=== PATIENT | male | born 1980 | race Caucasian/White ===

== ENCOUNTER 2021-12-21 12:32 | Inpatient (IN) ==
[2021-12-21 13:09] LABS: Basophils # (auto) 0.03 K/uL (0-0.2); Basophils % (auto) 0.2 %; Eosinophils # (auto) 0.09 K/uL (0-0.5); Eosinophils % (auto) 0.7 %; Hematocrit (blood only) 47.3 % (42-52); Hemoglobin 16.8 g/dL (14.0-18.0); Immature Granulocytes # (auto) 0.02 K/uL (0.00-0.02); Immature Granulocytes % (auto) 0.2 %; Lymphocytes # (auto) 2.47 K/uL (1.2-3.4); Lymphocytes % (auto) 20.1 %; Mean Corpuscular Hemoglobin 32.3 pg (25-34); Mean Corpuscular Hgb Conc 35.5 g/dL (32-36); Mean Platelet Volume 10.5 fL (7.4-10.4); Monocytes # (auto) 1.33 K/uL (0.11-0.59); Monocytes % (auto) 10.8 %; Neutrophils # (auto) 8.35 K/uL (1.4-6.5); Platelet Count 396 K/uL (130-400); RDW Coefficient of Variation 12.9 % (11.5-14.5); White Blood Count 12.29 K/uL (4.8-10.8)
[2021-12-21 13:46] LABS: Albumin Globulin Ratio 1.5 (0.9-2); Albumin Level 4.8 gm/dl (3.4-5.0); BUN Creatinine Ratio 10.5 (10-20); Creatinine Clr Calc Pharmacy 82.2 ml/min; Est GFR (African American) 65.5 ml/min; Est GFR (Non-African American) 56.5 ml/min; Globulin 3.1 gm/dl (2.5-4.0); Total Protein 7.9 gm/dl (6.0-8.3)
--- NOTE | 2021-12-21 13:56 | CT Scan Report ---
CT SCAN OF THE ABDOMEN AND PELVIS WITHOUT IV CONTRAST CLINICAL HISTORY: Dysuria. Microscopic hematuria. COMPARISON STUDY: Abdominal radiographs dated 07/08/2021. TECHNIQUE: CT scan of the abdomen and pelvis is performed from the lung bases to the proximal femora. Images are reviewed in the axial, sagittal, and coronal planes. IV contrast was not administered for this examination. A dose lowering technique was utilized adhering to the principles of ALARA. CT DOSE: 894.84 mGy.cm FINDINGS: Lung bases: The heart is normal in size and without pericardial effusion. There are calcified right h ilar lymph nodes. There are scattered calcified granulomas. The lung bases are otherwise clear noting mild bibasilar atelectasis. Liver: The unenhanced liver is normal in size, contour, and attenuation. There is no intrahepatic edgar iary ductal dilatation. Gallbladder: Unremarkable. Spleen: Normal in size and attenuation. Pancreas: Unremarkable. Adrenal glands: Unremarkable. Kidneys: There is slightly asymmetric cortical atrophy of the left kidney as compared to the right. T here is a 1.8 x 1.5 x 1.3 cm ovoid obstructing calculus in the right proximal ureter at the level of L3. This is located just below the ureteropelvic junction and causes moderate to severe right hydrone phrosis. There is associated right-sided perinephric stranding and fluid. There are 3 additional nono bstructing right renal calculi which measure up to 5 mm. A 3 mm nonobstructing calculus is seen in th e left lower pole. There is mild left hydroureteronephrosis. The left ureter appears to insert ectopi roldan into the bladder dome on image #[id number]. There is no evidence of contour deforming renal mass lesio n. Abdominal vasculature: The abdominal aorta is normal in course and caliber. Bowel: There is no bowel obstruction. Mild fecal retention is seen throughout the colon. The appendix is well-visualized and normal. Peritoneum: There is no intraperitoneal free air or abdominal ascites. Lymphadenopathy: None. Pelvic viscera: The bladder, prostate, and seminal vesicles are normal as visualized. Skeletal structures: There is mild lumbosacral spondylosis. No lytic or blastic lesions are seen. IMPRESSION: 1. There is a 1.8 cm ovoid obstructing calculus in the right proximal ureter located just above the u reteropelvic junction. This causes moderate to severe right-sided hydronephrosis. 2. Additional nonobstructing calculi are seen bilaterally. 3. There is mild left hydroureteronephrosis of the left kidney which demonstrates mild cortical atrop hy as compared to the right. No obstructing stone or lesion is seen. The left ureter inserts ectopica lly into the dome of the bladder. 4. Additional findings as above. ACT 112: Negative or not required by law. Electronically signed by: Lior Holland M.D. 12/21/2021 1:54 PM
--- NOTE | 2021-12-21 14:13 | Emergency Department Note ---
Impression & Plan Ureterolithiasis, Hydronephrosis, Leukocytosis, Renal insufficiency ED Provider Note INFORMANT: Patient ED PROVIDER(S): Rell Johnson MD CHIEF COMPLAINT: Flank pain and urinary symptoms PLAN: Disposition: Admitted Condition: Good Outpatient prescription management: none Referral: None MEDICAL DECISION MAKING: Patient attended emergency room because of urinary symptoms and flank pain. CT imaging was performed. Verbal performed as well. He was found to have mild leukocytosis. Patient had mild renal insufficiency. Urinalysis was unremarkable. CT imaging shows a very large obstructing right sided stone. 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 Consultation was made with [facility]. I discussed the case with Danielle Abarca PROGRAM MANAGER SLP. She discussed this with Dr. White. She notified me that the patient would need intervention and have the patient admitted. I did consult with internal medicine, Dr. Colin. Triage Nursing notes reviewed and agree them. Vital Signs: reviewed and remarkable for no significant abnormalities Differential diagnosis: Renal colic, UTI, appendicitis, diverticulitis, mesenteric ischemia, aortic pathology, infections, inflammatory bowel disease, PUD, biliary pathology, as well as other pathologies. Diagnostics interpreted by me: ECG: none Cardiac Monitoring: none Imaging studies: CT scan as noted above. I refer you to the EMR for further details. HPI: The patient is a 41 year old male who presents to the Emergency Room with complaints of right flank pain and difficulty urinating This started this week and is worsening. Patient states that he could not urinate today. He went to the [facility] at the present and they attempted the catheter but only got a very small amount of urine. He walked back to his cell to get his belongings prior to coming to the ER and states he did urinate. 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 The patient also notes the following associated symptoms, right lower abdominal pain. The patient has been prescribed no new medication for relieving factors. Current pain is rated as 5/10. Pt denies LOC, headache, fevers, chills, diaphoresis, visual changes, neck pain, chest pain, breathing difficulties, nausea, vomiting, melena, hematochezia, numbness, weakness, lymphadenopathy, rash, or other complaints. ROS: See above HPI for pertinent positives & negatives. A total of 10 systems reviewed and were otherwise negative. PAST MEDICAL HISTORY:See Below , kidney stones, hepatitis C PAST SURGICAL HISTORY:See Below, FAMILY HISTORY:See Below SOCIAL HISTORY:See Below, incarcerated HOME MEDICATIONS:See Below ALLERGIES:See Below VITALS:See Below PHYSICAL EXAMINATION: GENERAL: Awake, alert, well-appearing, in no distress HENT: Normocephalic, atraumatic. Oropharynx unremarkable. EYES: Normal conjunctiva. Sclera non-icteric. NECK: Inspection normal. Non-tender. Supple. No nuchal rigidity. FROM. No mas ses. RESPIRATORY: Clear to auscultation. No wheezes. No rales. Normal respiratory effort. CARDIAC: Normal rate. Normal rhythm. No murmurs. No rubs. Extremities warm and well perfused. Pulses equal. No JVD. GI: Soft, non-distended. No tenderness to palpation. No rebound or guarding. No masses. RECTAL: Deferred. MUSCULOSKELETAL: Atraumatic. Chest examination reveals no tenderness. The back is symmetrical on inspection without obvious abnormality. There is right CVA tenderness to palpation. No joint edema. LOWER EXTREMITIES: Calves are equal size bilaterally and non-tender. No edema. No discoloration. NEURO: Normal sensorium. No sensory or motor deficits noted. SKIN: No rash or jaundice noted. Rell Johnson MD Past Med/Surg History Medical History (Updated 12/21/21 @ 17:27 by Marley Andres PA-C) Calculus of kidney Chronic depressive disorder Chronic hepatitis C Hematuria, unspecified Insomnia, unspecified Low back pain Social History Smoking Status: Former smoker Second Hand Exposure: No; Hx Alcohol Use: No (SCI Low) Hx Substance Use: No (SCI Low) Preferred Language: Croatian Communication Ability: Effective Early Learning Teacher Required: No Beliefs That Will Affect Care: None Current Living Situation: Other Current Living Situation Comment: [facility] Feels Safe at Home: Yes Allergies Allergies Allergy/AdvReac Type Severity Reaction Status Date / Time penicillin V Allergy Unknown Unknown Verified 12/21/21 16:05 Sulfa (Sulfonamide Allergy Unknown Unknown Verified 12/21/21 16:05 Antibiotics) Home Meds Home Medications Medication Instructions Recorded Confirmed duloxetine 30 mg capsule,delayed 60 mg PO HS 06/25/21 12/21/21 release sprinkle Results & Data (ED) Vital Signs Vital Signs - 24 hr 12/21/21 12:37 12/21/21 15:15 12/21/21 15:20 Temperature 36.5 C Temperature Source Oral Pulse Rate 100 H 94 H 89 Pulse Rate from SpO2 Sensor 95 H 88 Pulse Rhythm Regular Pulse Strength Normal Respiratory Rate 18 24 16 Respiratory Effort / Characteristics Non-Labored Spontaneous Respiratory Depth Normal Respiratory Pattern Regular Blood Pressure 149/86 H Blood Pressure Mean 107 Blood Pressure Position Sitting Pulse Oximetry 97 96 96 Oxygen Delivery Method Room Air Sepsis Recent Fever Within 48 Hours No Sepsis New/Unexplained Change in Mental Status No Sepsis Action Taken by Nursing No Action Required 12/21/21 15:30 12/21/21 15:40 12/21/21 15:50 Temperature Temperature Source Pulse Rate 84 74 70 Pulse Rate from SpO2 Sensor 83 75 70 Pulse Rhythm Pulse Strength Respiratory Rate 15 21 22 Respiratory Effort / Characteristics Respiratory Depth Respiratory Pattern Blood Pressure 131/85 Blood Pressure Mean 100 Blood Pressure Position Pulse Oximetry 97 96 97 Oxygen Delivery Method Sepsis Recent Fever Within 48 Hours Sepsis New/Unexplained Change in Mental Status Sepsis Action Taken by Nursing 12/21/21 16:00 12/21/21 16:10 12/21/21 16:20 Temperature Temperature Source Pulse Rate 68 77 84 Pulse Rate from SpO2 Sensor 68 76 81 Pulse Rhythm Pulse Strength Respiratory Rate 22 22 21 Respiratory Effort / Characteristics Respiratory Depth Respiratory Pattern Blood Pressure 125/78 Blood Pressure Mean 93 Blood Pressure Position Pulse Oximetry 97 97 98 Oxygen Delivery Method Sepsis Recent Fever Within 48 Hours Sepsis New/Unexplained Change in Mental Status Sepsis Action Taken by Nursing 12/21/21 16:30 12/21/21 16:40 12/21/21 16:50 Temperature Temperature Source Pulse Rate 70 94 H 80 Pulse Rate from SpO2 Sensor 70 93 H Pulse Rhythm Pulse Strength Respiratory Rate 23 14 21 Respiratory Effort / Characteristics Respiratory Depth Respiratory Pattern Blood Pressure 130/81 Blood Pressure Mean 97 Blood Pressure Position Pulse Oximetry 96 98 Oxygen Delivery Method Sepsis Recent Fever Within 48 Hours Sepsis New/Unexplained Change in Mental Status Sepsis Action Taken by Nursing 12/21/21 17:00 12/21/21 17:10 12/21/21 17:20 Temperature Temperature Source Pulse Rate Pulse Rate from SpO2 Sensor 73 72 70 Pulse Rhythm Pulse Strength Respiratory Rate 23 23 17 Respiratory Effort / Characteristics Respiratory Depth Respiratory Pattern Blood Pressure 127/77 Blood Pressure Mean 93 Blood Pressure Position Pulse Oximetry 98 96 96 Oxygen Delivery Method Sepsis Recent Fever Within 48 Hours Sepsis New/Unexplained Change in Mental Status Sepsis Action Taken by Nursing 12/21/21 17:30 12/21/21 17:40 12/21/21 17:50 Temperature Temperature Source Pulse Rate Pulse Rate from SpO2 Sensor 72 68 72 Pulse Rhythm Pulse Strength Respiratory Rate 19 22 21 Respiratory Effort / Characteristics Respiratory Depth Respiratory Pattern Blood Pressure 120/68 Blood Pressure Mean 85 Blood Pressure Position Pulse Oximetry 96 96 97 Oxygen Delivery Method Sepsis Recent Fever Within 48 Hours Sepsis New/Unexplained Change in Mental Status Sepsis Action Taken by Nursing 12/21/21 18:00 12/21/21 18:10 12/21/21 18:20 Temperature Temperature Source Pulse Rate Pulse Rate from SpO2 Sensor 67 71 71 Pulse Rhythm Pulse Strength Respiratory Rate 21 16 16 Respiratory Effort / Characteristics Respiratory Depth Respiratory Pattern Blood Pressure 118/70 Blood Pressure Mean 86 Blood Pressure Position Pulse Oximetry 96 96 96 Oxygen Delivery Method Sepsis Recent Fever Within 48 Hours Sepsis New/Unexplained Change in Mental Status Sepsis Action Taken by Nursing 12/21/21 18:30 12/21/21 18:40 Temperature Temperature Source Pulse Rate Pulse Rate from SpO2 Sensor 75 71 Pulse Rhythm Pulse Strength Respiratory Rate 18 15 Respiratory Effort / Characteristics Respiratory Depth Respiratory Pattern Blood Pressure 125/74 Blood Pressure Mean 91 Blood Pressure Position Pulse Oximetry 95 96 Oxygen Delivery Method Sepsis Recent Fever Within 48 Hours Sepsis New/Unexplained Change in Mental Status Sepsis Action Taken by Nursing Laboratory Data Result diagrams: 12/21/21 12:47 12/21/21 12:47 Lab Results 12/21/21 12/21/21 12/21/21 Range/Units 12:47 12:47 14:16 WBC 12.29 H (4.8-10.8) K/uL RBC 5.20 (4.7-6.1) M/uL Hgb 16.8 (14.0-18.0) g/dL Hct 47.3 (42-52) % MCV 91.0 (80-100) fL MCH 32.3 (25-34) pg MCHC 35.5 (32-36) g/dL RDW Std Deviation 43.0 (36.4-46.3) fL RDW Coeff of Dilshad 12.9 (11.5-14.5) % Plt Count 396 (130-400) K/uL MPV 10.5 H (7.4-10.4) fL Immature Gran % (Auto) 0.2 % Neut % (Auto) 68.0 % Lymph % (Auto) 20.1 % Coal % (Auto) 10.8 % Eos % (Auto) 0.7 % Baso % (Auto) 0.2 % Neut # (Auto) 8.35 H (1.4-6.5) K/uL Lymph # (Auto) 2.47 (1.2-3.4) K/uL Coal # (Auto) 1.33 H (0.11-0.59) K/uL Eos # (Auto) 0.09 (0-0.5) K/uL Baso # (Auto) 0.03 (0-0.2) K/uL Immature Gran # (Auto) 0.02 (0.00-0.02) K/uL Sodium 135 L (136-145) mmol/L Potassium 4.0 (3.5-5.1) mmol/L Chloride 99 (98-107) mmol/L Carbon Dioxide 28 (21-32) mmol/L Anion Gap 8 (3-11) BUN 16 (6-23) mg/dl Creatinine 1.52 H (0.6-1.4) mg/dl Est Cr Clr Drug Dosing 82.2 ml/min Est GFR ( Amer) 65.5 ml/min Est GFR (Non-Af Amer) 56.5 ml/min BUN/Creatinine Ratio 10.5 (10-20) Glucose 95 (70-99(Fasting)) mg/dl Calcium 10.0 (8.5-10.1) mg/dl Total Bilirubin 1.0 (0.2-1.0) mg/dl AST 32 (13-39) U/L ALT 57 H (7-52) U/L Alkaline Phosphatase 61 (34-104) U/L Total Protein 7.9 (6.0-8.3) gm/dl Albumin 4.8 (3.4-5.0) gm/dl Globulin 3.1 (2.5-4.0) gm/dl Albumin/Globulin Ratio 1.5 (0.9-2) Lipase 28 (11-82) U/L Urine Color Yellow Urine Appearance Clear (Clear) Urine pH 6.5 (4.5-7.5) Ur Specific [place] 1.005 (1.000-1.030) Urine Protein Negative (Negative) Urine Glucose (UA) Negative (Negative) Urine Ketones Negative (Negative) Urine Blood Negative (Negative) Urine Nitrite Negative (Negative) Urine Bilirubin Negative (Negative) Urine Urobilinogen Negative (Negative) Ur Leukocyte Esterase Negative (Negative) SARS-CoV-2, RNA, NAAT (NEGATIVE) 12/21/21 Range/Units 14:54 WBC (4.8-10.8) K/uL RBC (4.7-6.1) M/uL Hgb (14.0-18.0) g/dL Hct (42-52) % MCV (80-100) fL MCH (25-34) pg MCHC (32-36) g/dL RDW Std Deviation (36.4-46.3) fL RDW Coeff of Dilshad (11.5-14.5) % Plt Count (130-400) K/uL MPV (7.4-10.4) fL Immature Gran % (Auto) % Neut % (Auto) % Lymph % (Auto) % Coal % (Auto) % Eos % (Auto) % Baso % (Auto) % Neut # (Auto) (1.4-6.5) K/uL Lymph # (Auto) (1.2-3.4) K/uL Coal # (Auto) (0.11-0.59) K/uL Eos # (Auto) (0-0.5) K/uL Baso # (Auto) (0-0.2) K/uL Immature Gran # (Auto) (0.00-0.02) K/uL Sodium (136-145) mmol/L Potassium (3.5-5.1) mmol/L Chloride (98-107) mmol/L Carbon Dioxide (21-32) mmol/L Anion Gap (3-11) BUN (6-23) mg/dl Creatinine (0.6-1.4) mg/dl Est Cr Clr Drug Dosing ml/min Est GFR ( Amer) ml/min Est GFR (Non-Af Amer) ml/min BUN/Creatinine Ratio (10-20) Glucose (70-99(Fasting)) mg/dl Calcium (8.5-10.1) mg/dl Total Bilirubin (0.2-1.0) mg/dl AST (13-39) U/L ALT (7-52) U/L Alkaline Phosphatase (34-104) U/L Total Protein (6.0-8.3) gm/dl Albumin (3.4-5.0) gm/dl Globulin (2.5-4.0) gm/dl Albumin/Globulin Ratio (0.9-2) Lipase (11-82) U/L Urine Color Urine Appearance (Clear) Urine pH (4.5-7.5) Ur Specific [place] (1.000-1.030) Urine Protein (Negative) Urine Glucose (UA) (Negative) Urine Ketones (Negative) Urine Blood (Negative) Urine Nitrite (Negative) Urine Bilirubin (Negative) Urine Urobilinogen (Negative) Ur Leukocyte Esterase (Negative) SARS-CoV-2, RNA, NAAT NEGATIVE (NEGATIVE) Administered Medications Sodium Chloride (Nss 1000ml) 1,000 mls @ 125 mls/hr IV .Q8H STA Stop: 12/21/21 22:51 Last Admin: 12/21/21 15:14 Dose: 125 mls/hr Documented by: [id number] Ceftriaxone Sodium 1,000 mg/ (Dextrose) 50 mls @ 100 mls/hr IV Q24H REJI; Protocol Stop: 12/31/21 17:44 Last Admin: 12/21/21 18:17 Dose: 100 mls/hr Documented by: [id number] Sodium Chloride (Nss 1000ml) 1,000 mls @ 125 mls/hr IV .Q8H REJI Stop: 01/20/22 17:44 Last Admin: 12/21/21 18:17 Dose: 125 mls/hr Documented by: [id number] Discontinued Medications Morphine Sulfate (Morphine Sulfate 4 Mg/Ml 1 Ml Carp\Vial) 4 mg IV NOW STA Stop: 12/21/21 14:40 Last Admin: 12/21/21 15:14 Dose: 4 mg Documented by: [id number] Ondansetron HCl (Ondansetron Inj 2 Mg/Ml 2 Ml Vial) 4 mg IV NOW STA Stop: 12/21/21 14:40 Last Admin: 12/21/21 15:14 Dose: 4 mg Documented by: [id number] Imaging Data Radiologist's Impression: Abdomen/Pelvis CT 12/21/21 13:00 CT SCAN OF THE ABDOMEN AND PELVIS WITHOUT IV CONTRAST CLINICAL HISTORY: Dysuria. Microscopic hematuria. COMPARISON STUDY: Abdominal radiographs dated 07/08/2021. TECHNIQUE: CT scan of the abdomen and pelvis is performed from the lung bases to the proximal femora. Images are reviewed in the axial, sagittal, and coronal planes. IV contrast was not administered for this examination. A dose lowering technique was utilized adhering to the principles of ALARA. CT DOSE: 894.84 mGy.cm FINDINGS: Lung bases: The heart is normal in size and without pericardial effusion. There are calcified right hilar lymph nodes. There are scattered calcified granulomas. The lung bases are otherwise clear noting mild bibasilar atelectasis. Liver: The unenhanced liver is normal in size, contour, and attenuation. There is no intrahepatic biliary ductal dilatation. Gallbladder: Unremarkable. Spleen: Normal in size and attenuation. Pancreas: Unremarkable. Adrenal glands: Unremarkable. Kidneys: There is slightly asymmetric cortical atrophy of the left kidney as compared to the right. There is a 1.8 x 1.5 x 1.3 cm ovoid obstructing calculus in the right proximal ureter at the level of L3. This is located just below the ureteropelvic junction and causes moderate to severe right hydronephrosis. There is associated right-sided perinephric stranding and fluid. There are 3 additional nonobstructing right renal calculi which measure up to 5 mm. A 3 mm nonobstructing calculus is seen in the left lower pole. There is mild left hydroureteronephrosis. The left ureter appears to insert ectopically into the bladder dome on image #[id number]. There is no evidence of contour deforming renal mass lesion. Abdominal vasculature: The abdominal aorta is normal in course and caliber. Bowel: There is no bowel obstruction. Mild fecal retention is seen throughout the colon. The appendix is well-visualized and normal. Peritoneum: There is no intraperitoneal free air or abdominal ascites. Lymphadenopathy: None. Pelvic viscera: The bladder, prostate, and seminal vesicles are normal as visualized. Skeletal structures: There is mild lumbosacral spondylosis. No lytic or blastic lesions are seen. IMPRESSION: 1. There is a 1.8 cm ovoid obstructing calculus in the right proximal ureter located just above the ureteropelvic junction. This causes moderate to severe right-sided hydronephrosis. 2. Additional nonobstructing calculi are seen bilaterally. 3. There is mild left hydroureteronephrosis of the left kidney which demonstrates mild cortical atrophy as compared to the right. No obstructing s tone or lesion is seen. The left ureter inserts ectopically into the dome of the bladder. 4. Additional findings as above. ACT 112: Negative or not required by law. Electronically signed by: Lior Holland M.D. 12/21/2021 1:54 PM Discharge Plan Visit Data Chief Complaint: Urinary Symptoms Stated Complaint: CANNOT URINATE ED Provider: Rell Johnson Discharge Problem: Ureterolithiasis, Hydronephrosis, Leukocytosis, Renal insufficiency Forms Stand Alone Forms: [facility] Identification [employer] Prescriptions Prescriptions: No Action duloxetine 30 mg Capsule, Delayed Rel Sprinkle 60 mg PO HS RF: 0 Referrals Referrals: Low UREÑA [Primary Care Provider] -
[2021-12-21 14:36] LABS: Appearance Urine Clear (Clear); Bilirubin Urine Negative (Negative); Blood Urine Negative (Negative); Color Urine Yellow; Glucose Urine UA Negative (Negative); Ketones Urine Negative (Negative); Leukocyte Esterase Urine Negative (Negative); Nitrite Urine Negative (Negative); Protein Urine Negative (Negative); Specific Gravity Urine 1.005 (1.000-1.030); Urobilinogen Urine Negative (Negative); pH Urine 6.5 (4.5-7.5)
[2021-12-21] MEDS ORDERED: MoRPHine SULFATE 4 MG/ML 1 ML CARP\\VIAL IV STA (14:39)
[2021-12-21] MEDS ORDERED: ONDANSETRON INJ 2 MG/ML 2 ML VIAL IV STA (14:39)
[2021-12-21] MEDS ORDERED: SODIUM CHLORIDE 0.9% 1000ML 1,000 ML IV STA (14:52)
--- NOTE | 2021-12-21 17:14 | History & Physical Report ---
Date of Service December 21, 2021 Assessment & Plan (1) Calculus of right kidney: Plan: Known h/o R obstructing renal calculus measuring 1.8cm w/ associated hydronephro sis Admit to Med/Surg unit Regular diet will be ordered for dinner, n.p.o. after midnight Consult urology for surgical intervention which will be necessary d/t size Pain control will be utilized with APAP, IV Toradol for moderate pain, and Morphine for severe pain IV fluid hydration with NSS @ 125 ml/hr Empiric Rocephin 1g IV daily will be utilized especially as he will be going to the OR tomorrow for planned intervention (2) Hydronephrosis: Plan: As above (3) Leukocytosis: Plan: Urine does not appear grossly infected however will empirically place on ceftriaxone 1 g IV daily Trend (4) Acute kidney injury: Plan: IVF hydration as noted above (5) Chronic hepatitis C: Plan: No treatment (6) Chronic depressive disorder: Plan: Continue Cymbalta as prescribed Plan: NPO after MN, consult urology for intervention Follow up labs in AM Does not need DVT ppx as he is low risk Case has been d/w Dr. Alvarado who has also seen and evaluated this patient. History of Present Illness Chief Complaint: Unable to urinate R flank pain Primary Care Provider: NIRANJAN Mary is a 41 yo WM with a remote h/o Hep C, that was never treated and depression who is an [facility] prisoner. He visited the [facility] today with c/o difficulty voiding and worsening right flank pain over the past 24 hours. He reports long standing history of kidney stones that he states have been present for the past 5 years. He was last seen by urology in May 2021 and was going to proceed with a right ESWL. However, the procedure was not performed as patient states that he is to be released this year and figured he could have it done af ter he was released from jail. Unfortunately, his pain got significantly worse last evening prompting him to seek evaluation today. The provider at the jail attempted to catheterize him, he was able to get a small amount of urine but then later he was able to void spontaneously a small amount. However, due to his pain, he was sent to the ER for further eval. ER work up demonstrated mild leukocytosis, UA did not appear grossly infected, but imaging demonstrated a large 1.8 cm obstructing renal calculus just above the UPJ. Case was d/w urology who felt he may warrant stent placement. Subsequently, hospitalists were contacted to admit for further care. Currently pt is awake, alert, appears comfortable. He denies cp, dyspnea, n/v/d, f/c, headache. Only c/o were vomiting yesterday evening, but nothing today. Has had hematuria and right low back pain radiating around his flank and into the right side of his groin. Allergies Allergy/AdvReac Type Severity Reaction Status Date / Time penicillin V Allergy Unknown Unknown Verified 12/21/21 16:05 Sulfa (Sulfonamide Allergy Unknown Unknown Verified 12/21/21 16:05 Antibiotics) Home Medications Medication Instructions Recorded Confirmed Type duloxetine 30 mg capsule,delayed 60 mg PO HS 06/25/21 12/21/21 History release sprinkle Past Med/Surg History Medical History (Updated 12/21/21 @ 17:27 by Marley Andres PA-C) Calculus of kidney Chronic depressive disorder Chronic hepatitis C Hematuria, unspecified Insomnia, unspecified Low back pain Social History Smoking Status: Former smoker Second Hand Exposure: No; Hx Alcohol Use: No (NIRANJAN Kelsey) Hx Substance Use: No (NIRANJAN Kelsey) Preferred Language: Zimbabwean Communication Ability: Effective 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 HEENT: Denies changes in vision and hearing. RESPIRATORY: Denies SOB, cough, wheezing. CV: Denies palpitations, CP, lower extremity edema, orthopnea, PND. GI: Denies abdominal pain, nausea, vomiting and diarrhea. : +right flank pain and blood in urine. Denies dysuria and urinary frequency, urgency, hesitancy. MUSCULOSKELETAL: Denies myalgia and joint pain. SKIN: Denies rash and pruritus. NEUROLOGICAL: Denies headache, syncope, focal weakness, numbness, tingling. PSYCHIATRIC: Denies recent changes in mood. Denies anxiety and depression. Physical Exam Physical Exam: GENERAL: 41 yo well-developed, well-nourished WM. NAD. EYES: EOMI. PERRLA. Anicteric. HENT: Moist mucous membranes. No scleral icterus. No cervical lymphadenopathy. LUNGS: Clear to auscultation bilaterally. No accessory muscle use. No W/R/R. CARDIOVASCULAR: Regular rate and rhythm. No M/G/R. No JVD. ABDOMEN: Soft, non-tender and non-distended. BS normal x 4 quad. : +CVA tenderness on right. Negative CVA on L. EXTREMITIES: No edema. Non-tender. Peripheral pulses +2/4. NEUROLOGIC: A&O x3. No focal neurological deficits. PSYCHIATRIC: Cooperative. Appropriate mood and affect. SKIN: Warm, dry, intact. No rashes or lesions. Results & Data Results & Data ([facility]) Vital Signs (Past 12 Hours) Vital Signs Temp Pulse Resp BP Pulse Ox 12/21/21 12:37 36.5 C 100 H 18 149/86 H 97 Laboratory Results 12/21/21 12:47 12/21/21 12:47 Diagnostic Findings Abdomen/Pelvis CT 12/21/21 13:00 CT SCAN OF THE ABDOMEN AND PELVIS WITHOUT IV CONTRAST CLINICAL HISTORY: Dysuria. Microscopic hematuria. COMPARISON STUDY: Abdominal radiographs dated 07/08/2021. TECHNIQUE: CT scan of the abdomen and pelvis is performed from the lung bases to the proximal femora. Images are reviewed in the axial, sagittal, and coronal bethanie dolly. IV contrast was not administered for this examination. A dose lowering technique was utilized adhering to the principles of ALARA. CT DOSE: 894.84 mGy.cm FINDINGS: Lung bases: The heart is normal in size and without pericardial effusion. There are calcified right hilar lymph nodes. There are scattered calcified granulomas. The lung bases are otherwise clear noting mild bibasilar atelectasis. Liver: The unenhanced liver is normal in size, contour, and attenuation. There is no intrahepatic biliary ductal dilatation. Gallbladder: Unremarkable. Spleen: Normal in size and attenuation. Pancreas: Unremarkable. Adrenal glands: Unremarkable. Kidneys: There is slightly asymmetric cortical atrophy of the left kidney as compared to the right. There is a 1.8 x 1.5 x 1.3 cm ovoid obstructing calculus in the right proximal ureter at the level of L3. This is located just below the ureteropelvic junction and causes moderate to severe right hydronephrosis. There is associated right-sided perinephric stranding and fluid. There are 3 additional nonobstructing right renal calculi which measure up to 5 mm. A 3 mm nonobstructing calculus is seen in the left lower pole. There is mild left hydroureteronephrosis. The left ureter appears to insert ectopically into the bladder dome on image #355. There is no evidence of contour deforming renal mass lesion. Abdominal vasculature: The abdominal aorta is normal in course and caliber. Bowel: There is no bowel obstruction. Mild fecal retention is seen throughout the colon. The appendix is well-visualized and normal. Peritoneum: There is no intraperitoneal free air or abdominal ascites. Lymphadenopathy: None. Pelvic viscera: The bladder, prostate, and seminal vesicles are normal as visualized. Skeletal structures: There is mild lumbosacral spondylosis. No lytic or blastic lesions are seen. IMPRESSION: 1. There is a 1.8 cm ovoid obstructing calculus in the right proximal ureter located just above the ureteropelvic junction. This causes moderate to severe right-sided hydronephrosis. 2. Additional nonobstructing calculi are seen bilaterally. 3. There is mild left hydroureteronephrosis of the left kidney which demonstrates mild cortical atrophy as compared to the right. No obstructing stone or lesion is seen. The left ureter inserts ectopically into the dome of the bladder. 4. Additional findings as above. ACT 112: Negative or not required by law. Electronically signed by: Lior Holland M.D. 12/21/2021 1:54 PM Supervising Physician Co-Signing Physician Notes this pt was seen independently in the ER, he was with good pain control. will be kept NPO for possible procedure. exam is without significant distress parenteral pain control and ivf, no antibiotics at this point, urology consult PG Care Time/CCT Total # of Minutes Spent Total Time Spent with Patient: Total time spent is greater than 50% in coordination of care (as documented) at patient's floor/unit and/or counseling patient: Coding Level of Care Code 62398 Initial Inpt Care Lvl 2 Diagnoses Calculus of right kidney N20.0 Hydronephrosis N13.30 Leukocytosis D72.829 Acute kidney injury N17.9 Chronic hepatitis C B18.2 Chronic depressive disorder F32.9
[2021-12-21] MEDS ORDERED: cefTRIAXone SODIUM 1,000 MG in DEXTROSE 5% 50 ML IV SCH (17:45)
[2021-12-21] MEDS ORDERED: ACETAMINOPHEN 325 MG TAB PO PRN (17:45)
[2021-12-21] MEDS ORDERED: MoRPHine SULFATE 4 MG/ML 1 ML CARP\\VIAL IV PRN (17:45)
[2021-12-21] MEDS ORDERED: ONDANSETRON INJ 2 MG/ML 2 ML VIAL IV PRN (17:45)
[2021-12-21] MEDS: SODIUM CHLORIDE 0.9% 1000ML 1,000 ML IV SCH (18:17)
--- NOTE | 2021-12-21 20:23 | Urology Consultation ---
Date of Consultation December 21, 2021 Assessment & Plan (1) Calculus of right kidney: Patient has been admitted on the hospitalist service. We recommend proceeding as follows: Provide analgesics provide antiemetics Hydration measures with IV fluids to be employed Strain all urine so any past kidney stones can be analyzed The patient has been covered empirically with Rocephin which should continue for the present time Make the patient n.p.o. after midnight in the event that cystoscopy is required tomorrow. If this is not felt to be deemed necessary his diet can be advanced At the present time the patient is noted to be afebrile, normotensive, and nontachycardic. Patient does not appear septic a trial of conservative measures is reasonable at this point in time. Additional recommendations be forthcoming based on his clinical course as it unfolds. History of Present Illness Reason for Consultation: Nephrolithiasis Attending Physician: Sukh Alvarado MD History of Present Illness This is a 41-year-old male who presented to [facility] secondary to right flank pain that has gotten progressively worse over the past 24 hours. The patient says that he has a known history of kidney stones and has been seen by [facility] physician group urology in the past. He was most recently seen in May 2021 and he noted that tentative plans were in place for patient undergo lithotripsy. The patient says that he never scheduled lithotripsy as he is currently incarcerated and is due to be released sometime this year and was planning on pursuing this as an outpatient. As noted above he noted some worsening right flank pain over the past 24 hours. He has had nausea without vomiting. He denies any fevers but did have some shakes and chills. He denies any dysuria or hematuria. He does not note any modifying factors to his pain other than medicines that were administered in the emergency department. In the emergency department the patient had labs and imaging which I independently reviewed. The patient was noted to have a 1.8 cm obstructing kidney stone in the right proximal ureter resulting in moderate to severe right- sided hydronephrosis. He was also noted to have mild left-sided hydronephrosis without any obstructing kidney stones noted. A CBC revealed white blood cell count was 12.2. Hemoglobin, hematocrit, and platelet count were all noted to be normal. Chemistry profile showed sodium was 135. Potassium and BUN were noted to be normal. Creatinine was elevated at 1.5. Review of past records show baseline creatinine is typically around 0.9. A urinalysis was not indicative of infection. A Covid test was noted to be negative. At the time of my interview the patient was resting comfortably in bed and he was in no distress. Allergies Allergy/AdvReac Type Severity Reaction Status Date / Time penicillin V Allergy Unknown Unknown Verified 12/21/21 16:05 Sulfa (Sulfonamide Allergy Unknown Unknown Verified 12/21/21 16:05 Antibiotics) Home Medications Medication Instructions Recorded Confirmed Type duloxetine 30 mg capsule,delayed 60 mg PO HS 06/25/21 12/21/21 History release sprinkle Patient History Medical History Calculus of kidney Chronic depressive disorder Chronic hepatitis C Hematuria, unspecified Insomnia, unspecified Low back pain Social History Smoking Status: Former smoker Second Hand Exposure: No; Hx Alcohol Use: No (NIRANJAN Kelsey) Hx Substance Use: No (NIRANJAN Kelsey) Preferred Language: Hungarian Communication Ability: Effective 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 Beliefs That Will Affect Care: None Current Living Situation: Other Current Living Situation Comment: NIRANJAN Kelsey Feels Safe at Home: Yes Review of Systems Constitutional: + chills; no fever Eyes: no diplopia Ear, Nose, Mouth, Throat: no ear pain Respiratory: no cough and no dyspnea Cardiovascular: no chest pain Gastrointestinal: + abdominal pain (Radiating from right flank) and + nausea; no vomiting Genitourinary: + flank pain (Right sided); no dysuria or no hematuria Musculoskeletal: + back pain (Right flank pain) Integumentary: no rash Neurologic: no localized weakness Physical Exam Constitutional: well developed and well nourished; no acute distress Eyes: no conjunctival abnormality ENMT: Ears: no hearing impairment and no external ear abnormality Mouth: no oropharynx abnormality Neck: trachea midline Respiratory: normal respiratory effort; no respiratory distress and no labored breathing Cardiovascular: Rate/Rhythm: regular rate and regular rhythm Gastrointestinal (Abdomen): Soft, nontender, nondistended Musculoskeletal: No calf tenderness Skin: no rashes Neurologic: moves all extremities Psychiatric: A+Ox3, euthymic affect Results & Data ([facility]) Vital Signs (Past 12 Hours) Vital Signs Temp Pulse Pulse Resp BP BP Pulse Ox 12/21/21 19:24 74 18 119/77 96 12/21/21 18:40 15 96 12/21/21 18:30 18 125/74 95 12/21/21 18:20 16 96 12/21/21 18:10 16 96 12/21/21 18:00 21 118/70 96 12/21/21 17:50 21 97 12/21/21 17:40 22 96 12/21/21 17:30 19 120/68 96 12/21/21 17:20 17 96 12/21/21 17:10 23 96 12/21/21 17:00 23 127/77 98 12/21/21 16:50 80 21 12/21/21 16:40 94 H 14 98 12/21/21 16:30 70 23 130/81 96 12/21/21 16:20 84 21 98 12/21/21 16:10 77 22 97 12/21/21 16:00 68 22 125/78 97 12/21/21 15:50 70 22 97 12/21/21 15:40 74 21 96 12/21/21 15:30 84 15 131/85 97 12/21/21 15:20 89 16 96 12/21/21 15:15 94 H 24 96 12/21/21 12:37 36.5 C 100 H 18 149/86 H 97 PG Care Time/CCT Total # of Minutes Spent Total Time Spent with Patient: Total time spent is greater than 50% in coordination of care (as documented) at patient's floor/unit and/or counseling patient: Coding Level of Care Code 66906 Inpt Consult Level 5 Diagnoses Calculus of right kidney N20.0
[2021-12-21] MEDS ORDERED: NON-FORMULARY MEDICATION (Duloxetine 30 mg Capsule, Delayed Rel Sprinkle) PO SCH (21:00)
[2021-12-21] MEDS: KETOROLAC 30 MG/ML VIAL IV PRN (21:03)
[2021-12-22] MEDS: SODIUM CHLORIDE 0.9% 1000ML 1,000 ML IV SCH ×3 (02:42→18:08)
[2021-12-22 06:13] LABS: Basophils # (auto) 0.07 K/uL (0-0.2); Basophils % (auto) 1.1 %; Eosinophils # (auto) 0.36 K/uL (0-0.5); Eosinophils % (auto) 5.4 %; Hematocrit (blood only) 40.1 % (42-52); Hemoglobin 13.7 g/dL (14.0-18.0); Lymphocytes # (auto) 2.71 K/uL (1.2-3.4); Lymphocytes % (auto) 40.9 %; Mean Corpuscular Hemoglobin 31.8 pg (25-34); Mean Corpuscular Hgb Conc 34.2 g/dL (32-36); Mean Platelet Volume 10.4 fL (7.4-10.4); Monocytes # (auto) 0.81 K/uL (0.11-0.59); Monocytes % (auto) 12.2 %; Neutrophils # (auto) 2.68 K/uL (1.4-6.5); Neutrophils % (auto) 40.4 %; Platelet Count 310 K/uL (130-400); RDW Coefficient of Variation 13.3 % (11.5-14.5); RDW Standard Deviation 45.6 fL (36.4-46.3); Red Blood Count 4.31 M/uL (4.7-6.1); White Blood Count 6.63 K/uL (4.8-10.8)
[2021-12-22 06:26] LABS: Albumin Globulin Ratio 1.6 (0.9-2); Albumin Level 3.3 gm/dl (3.4-5.0); BUN Creatinine Ratio 13.6 (10-20); Bilirubin,Total 0.5 mg/dl (0.2-1.0); Calcium 8.1 mg/dl (8.5-10.1); Creatinine Clr Calc Pharmacy 105.3 ml/min; Est GFR (African American) 96.8 ml/min; Est GFR (Non-African American) 83.5 ml/min; Globulin 2.1 gm/dl (2.5-4.0); Potassium 4.1 mmol/L (3.5-5.1); Total Protein 5.4 gm/dl (6.0-8.3)
[2021-12-22] MEDS: KETOROLAC 30 MG/ML VIAL IV PRN ×2 (08:12→18:26)
--- NOTE | 2021-12-22 11:58 | Urology Progress Note ---
Date of Service December 22, 2021 Assessment & Plan (1) Ureterolithiasis: (2) Hydronephrosis: Plan: 41yo M admitted with intractable right flank pain secondary to a 1.8cm obstructing proximal right ureteral calculus causing moderate to severe hydronephrosis. - Still with right flank pain this morning. - Pt afebrile, non-toxic appearing. - Labs reviewed - WBC down from 12.29-6.63, Creatinine 1.10 today (1.52 yesterday) - Urinalysis on admission not indicative of infection. On IV Ceftriaxone. - Discussed options for acute stone management with cystoscopy, stent placement, possible stone treatment. - Ureteral stents were discussed as well as post-operative issues and pain management. - Pt wishes to proceed with surgical intervention. - Plan of care reviewed with Dr. Ritchie, on-call urologist. - Given his intractable right flank pain in the context of an obstructing 1.8cm proximal right ureteral stone, will proceed with OR for cystoscopy, Right retrograde pyelogram, Right stent placement, possible ureteroscopy, stone treatment depending on findings. - Risks and benefits to be reviewed with patient by Dr. Ritchie. OR notified. Covid test negative. - Covered with scheduled IV Ceftriaxone. - Keep NPO. - Continue supportive care, antibiotic therapy, and pain management. - Will continue to follow Admission and Anticipated Discharge Date Admission Date: December 21, 2021 Subjective Pt examined at bedside this AM. Awake, resting in bed on arrival. No acute distress. Still with right flank pain, currently rates 4/10. Managing with IV pain medication. No fevers. Denies chills/shakes. Denies nausea or vomiting. Has been NPO. Voiding without issue. No hematuria or dysuria. Feels he is emptying his bladder. Review of Systems Constitutional: as per Subjective / HPI Gastrointestinal: as per Subjective / HPI Genitourinary: + as per Subjective / HPI Physical Exam Constitutional: well developed and well nourished; no acute distress and not ill appearing Respiratory: normal respiratory effort and able to speak in complete sentences; no labored breathing and no audible wheezes Gastrointestinal (Abdomen): Inspection/Auscultation: abdomen normal to inspection Musculoskeletal: Head/Neck/Chest: normocephalic Skin: No visible rashes or lesions to exposed skin areas Neurologic: moves all extremities and awake Psychiatric: Orientation: alert, oriented x 3 and cooperative Results & Data ([facility]) Vital Signs (Past 12 Hours) Vital Signs Temp Pulse Resp BP Pulse Ox 12/22/21 06:18 36.5 C 50 L 18 107/67 96 PG Care Time/CCT Total # of Minutes Spent Total Time Spent with Patient: Total time spent is greater than 50% in coordination of care (as documented) at patient's floor/unit and/or counseling patient: Coding Level of Care Code 50916 Subseq Hosp Care Lvl 2 Diagnoses Ureterolithiasis N20.1 Hydronephrosis N13.30
[2021-12-22] MEDS ORDERED: fentaNYL citrate 100 MCG/2 ML VIAL ONE (14:49)
[2021-12-22] MEDS ORDERED: MIDAZOLAM HCL 1 MG/ML 2ML VIAL ONE (14:49)
[2021-12-22] MEDS ORDERED: ONDANSETRON INJ 2 MG/ML 2 ML VIAL IV PRN (15:22)
[2021-12-22] MEDS ORDERED: ePHEDrine sulfate 50 MG/ML AMP IV PRN (15:22)
[2021-12-22] MEDS ORDERED: fentaNYL citrate 100 MCG/2 ML VIAL IV PRN (15:22)
[2021-12-22] MEDS ORDERED: ATROPINE SULFATE 0.1 MG/ML 10ML SYR IV PRN (15:22)
--- NOTE | 2021-12-22 15:22 | Anesthesiology Consultation ---
Date of Service December 22, 2021 Assessment & Plan Chart Review Chart Review: Acceptable Risk for Surgery and Patient NOT seen in Pre Admission Testing Consults Requested none ASA ASA2 Proposed Anesthesia Anesthesia Type: General Risk / Benefits Reviewed With: PT / POA / Parent / Guardian, Accepts Plan and Informed Consent Obtained History Surgery Operation Date: 12/22/21 09:40 Proposed Procedures p Cystoscopy,Right Retrograde Pyelogram, Right Stent Placement, Possible Ureteroscopy Stone Treatment - Asher Ritchie MD Height/Weight Height: 5 ft 10 in Weight: 99 kg Allergies Allergy/AdvReac Type Severity Reaction Status Date / Time penicillin V Allergy Unknown Unknown Verified 12/21/21 16:05 Sulfa (Sulfonamide Allergy Unknown Unknown Verified 12/21/21 16:05 Antibiotics) Medications Home Medications Medication Instructions Recorded Confirmed Last Taken duloxetine 30 mg capsule,delayed 60 mg PO HS 06/25/21 12/21/21 Unknown release sprinkle Active Medications Generic Name Dose Route Start Last Admin Trade Name Freq PRN Reason Stop Dose Admin Acetaminophen 650 mg 12/21/21 17:45 12/21/21 21:03 Acetaminophen 325 Mg Tab PO 01/20/22 17:44 650 mg Q6H PRN Administration pain scale 1-4 Ceftriaxone Sodium 1,000 mg/ 50 mls @ 100 mls/hr 12/21/21 17:45 12/21/21 19:22 Dextrose IV 12/31/21 17:44 Infused Q24H REJI Infusion Protocol Sodium Chloride 1,000 mls @ 125 mls/hr 12/21/21 17:45 12/22/21 14:34 Nss 1000ml IV 01/20/22 17:44 0 mls/hr .Q8H REJI Infusion Ketorolac Tromethamine 30 mg 12/21/21 17:45 12/22/21 08:12 Ketorolac 30 Mg/Ml Vial IV 12/26/21 17:44 30 mg Q6H PRN Administration Pain scale 5-7 Morphine Sulfate 4 mg 12/21/21 17:45 12/22/21 10:02 Morphine Sulfate 4 Mg/Ml 1 Ml Carp\Vial IV 01/04/22 17:44 4 mg Q4H PRN Administration Pain scale 8-10 Non-Formulary Medication 60 mg 12/21/21 21:00 12/21/21 20:53 Duloxetine PO 01/20/22 20:59 Not Given HS REJI NPO Date Last Intake of Fluids: 12/21/21 Time Last Intake of Fluids: 17:00 Date Last Intake of Solids: 12/21/21 Time Last Intake of Solids: 17:00 Past Medical History Medical History Calculus of kidney Chronic depressive disorder Chronic hepatitis C Hematuria, unspecified Insomnia, unspecified Low back pain Exercise / Class Metabolic Activity II 4-5 Yardwork/Stairs/Walk up hill Past Anesthesia History No Hx of Anesthesia Complications and No Family Hx of Anesthesia Complications History of PONV No Hx of PONV and No Hx of Motion Sickness Social History Smoking Status: Never smoker Do You Dip or Chew Tobacco: No Hx Alcohol Use: No Hx Substance Use: Yes substance use type: heroin Physical Exam Vital Signs Last Vital Signs Temp 37.2 C 12/22/21 14:46 Pulse 70 12/22/21 14:46 Resp 18 12/22/21 14:46 BP 120/73 12/22/21 14:46 Pulse Ox 98 12/22/21 14:46 ENMT Mouth: no dentition abnormality Thyromental Distance: > or= 3.5 Finger Breadths Mallampati Class: II Neck normal visual inspection Respiratory normal respiratory effort Auscultation: lungs clear to auscultation bilaterally Cardiovascular Rate/Rhythm: regular rate and regular rhythm Psychiatric Orientation: alert Testing Laboratory Results 12/22/21 05:18 12/22/21 05:18 Urine Color Yellow 12/21/21 14:16 Urine Appearance Clear (Clear) 12/21/21 14:16 Urine pH 6.5 (4.5-7.5) 12/21/21 14:16 Ur Specific [place] 1.005 (1.000-1.030) 12/21/21 14:16 Urine Protein Negative (Negative) 12/21/21 14:16 Urine Glucose (UA) Negative (Negative) 12/21/21 14:16 Urine Ketones Negative (Negative) 12/21/21 14:16 Urine Nitrite Negative (Negative) 12/21/21 14:16 Ur Leukocyte Esterase Negative (Negative) 12/21/21 14:16
[2021-12-22] MEDS ORDERED: DEXAMETHASONE SOD INJ 4 MG/ML VIAL ONE (16:06)
[2021-12-22] MEDS ORDERED: PROPOFOL IV EMULSION 10 MG/ML 20 ML VIAL IV ONE (16:06)
[2021-12-22] MEDS ORDERED: ONDANSETRON INJ 2 MG/ML 2 ML VIAL ONE (16:06)
[2021-12-22] MEDS ORDERED: LIDOCAINE 2% 2 ML VIAL/AMP(20MG/ML) INFIL ONE (16:06)
--- NOTE | 2021-12-22 16:32 | Discharge Summary ---
Date of Service December 22, 2021 Admission HPI Per Admitting Provider Jose Mary is a 41 yo WM with a remote h/o Hep C, that was never treated and depression who is an [facility] prisoner. He visited the [facility] today with c/o difficulty voiding and worsening right flank pain over the past 24 hours. He reports long standing history of kidney stones that he states have been present for the past 5 years. He was last seen by urology in May 2021 and was going to proceed with a right ESWL. However, the procedure was not performed as patient states that he is to be released this year and figured he could have it done after he was released from residential. Unfortunately, his pain got significantly worse last evening prompting him to seek evaluation today. The provider at the residential attempted to catheterize him, he was able to get a small amount of urine but then later he was able to void spontaneously a small amount. However, due to his pain, he was sent to the ER for further eval. ER work up demonstrated mild leukocytosis, UA did not appear grossly infected, but imaging demonstrated a large 1.8 cm obstructing renal calculus just above the UPJ. Case was d/w urology who felt he may warrant stent placement. Subsequently, hospitalists were contacted to admit for further care. Currently pt is awake, alert, appears comfortable. He denies cp, dyspnea, n/v/d, f/c, headache. Only c/o were vomiting yesterday evening, but nothing today. Has had hematuria and right low back pain radiating around his flank and into the right side of his groin. Principal Diagnosis Right obstructing renal calculus w/ hydronephrosis Mild FLORIAN -- resolved Leukocytosis (mild) -- resolved Discharge Exam GENERAL: 41 yo well-developed, well-nourished WM. NAD. LUNGS: Clear to auscultation bilaterally. No accessory muscle use. No W/R/R. CARDIOVASCULAR: Regular rate and rhythm. No M/G/R. No JVD. ABDOMEN: Soft, non-tender and non-distended. BS normal x 4 quad. : Mild CVA tenderness on right. Negative CVA on L. EXTREMITIES: No edema. Non-tender. Peripheral pulses +2/4. NEUROLOGIC: A&O x3. PSYCHIATRIC: Cooperative. Appropriate mood and affect. SKIN: Warm, dry, intact. No rashes or lesions. Discharge Data Allergies Allergy/AdvReac Type Severity Reaction Status Date / Time penicillin V Allergy Unknown Unknown Verified 12/21/21 16:05 Sulfa (Sulfonamide Allergy Unknown Unknown Verified 12/21/21 16:05 Antibiotics) Consultations 12/21/21 17:42 Consult Urology Routine Procedures Performed Operation Date: 12/22/21 09:40 cystoscopy with right stent placement by Dr. Ritchie Ordered Studies Abdomen/Pelvis CT 12/21/21 13:00 CT SCAN OF THE ABDOMEN AND PELVIS WITHOUT IV CONTRAST CLINICAL HISTORY: Dysuria. Microscopic hematuria. COMPARISON STUDY: Abdominal radiographs dated 07/08/2021. TECHNIQUE: CT scan of the abdomen and pelvis is performed from the lung bases to the proximal femora. Images are reviewed in the axial, sagittal, and coronal planes. IV contrast was not administered for this examination. A dose lowering technique was utilized adhering to the principles of ALARA. CT DOSE: 894.84 mGy.cm FINDINGS: Lung bases: The heart is normal in size and without pericardial effusion. There are calcified right hilar lymph nodes. There are scattered calcified granulomas. The lung bases are otherwise clear noting mild bibasilar atelectasis. Liver: The unenhanced liver is normal in size, contour, and attenuation. There is no intrahepatic biliary ductal dilatation. Gallbladder: Unremarkable. Spleen: Normal in size and attenuation. Pancreas: Unremarkable. Adrenal glands: Unremarkable. Kidneys: There is slightly asymmetric cortical atrophy of the left kidney as compared to the right. There is a 1.8 x 1.5 x 1.3 cm ovoid obstructing calculus in the right proximal ureter at the level of L3. This is located just below the ureteropelvic junction and causes moderate to severe right hydronephrosis. There is associated right-sided perinephric stranding and fluid. There are 3 additional nonobstructing right renal calculi which measure up to 5 mm. A 3 mm nonobstructing calculus is seen in the left lower pole. There is mild left hydroureteronephrosis. The left ureter appears to insert ectopically into the bladder dome on image #355. There is no evidence of contour deforming renal mass lesion. Abdominal vasculature: The abdominal aorta is normal in course and caliber. Bowel: There is no bowel obstruction. Mild fecal retention is seen throughout the colon. The appendix is well-visualized and normal. Peritoneum: There is no intraperitoneal free air or abdominal ascites. Lymphadenopathy: None. Pelvic viscera: The bladder, prostate, and seminal vesicles are normal as visualized. Skeletal structures: There is mild lumbosacral spondylosis. No lytic or blastic lesions are seen. IMPRESSION: 1. There is a 1.8 cm ovoid obstructing calculus in the right proximal ureter located just above the ureteropelvic junction. This causes moderate to severe right-sided hydronephrosis. 2. Additional nonobstructing calculi are seen bilaterally. 3. There is mild left hydroureteronephrosis of the left kidney which demonstrates mild cortical atrophy as compared to the right. No obstructing stone or lesion is seen. The left ureter inserts ectopically into the dome of the bladder. 4. Additional findings as above. ACT 112: Negative or not required by law. Electronically signed by: Lior Holland M.D. 12/21/2021 1:54 PM Hospital Course (1) Calculus of right kidney: Known h/o R obstructing renal calculus measuring 1.8cm w/ associated hydronephrosis Admitted to Med/Surg unit Made NPO after MN on 12/21 for planned procedure s/p stent placement in right ureter on 12/22 Urology consulted for surgical procedure to treat obstructing stone, underwent procedure today w/ Dr. Ritchie Pain control was provided, transitioned to Percocet following his procedure Hydrated w/ IVF--NSS @ 125 ml/hr which was discontinued following his procedure once his diet was advanced Empiric Rocephin 1g IV administered on 12/21 and 12/22, can d/c as urine is negative for infection (2) Hydronephrosis: As above (3) Leukocytosis: Urine does not appear grossly infected however will empirically place on ceftriaxone 1 g IV daily Resolved (4) Acute kidney injury: IVF hydration as noted above Renal function normalized today w/ hydration (5) Chronic hepatitis C: No treatment (6) Chronic depressive disorder: Continue Cymbalta as prescribed Pt is medically and hemodynamically stable for discharge back to [facility] today w/ Flomax 0.4mg daily at HS and can utilize Tylenol #3 PRN pain scale 7-10. Use APAP for mild to moderate pain. Pyridium can be used 100mg TID x 2 days as needed for dysuria that should resolve with time and is likely d/t his procedure. Follow up with urology as advised for stone treatment and stent removal. Follow up with healthcare provider at the residential. Case has been d/w Dr. Granger. Total Time Total Time Spent Total Time Spent (In Minutes): >30 minutes Discharge Plan Discharge Items [facility] Reason For Visit: RIGHT RENAL CALCULUS Discharge Diagnosis: Right kidney stone Activity: Resume your previous activity Non-emergency contact: Primary Care Provider and Urologist Call non-emergency contact if: you have any medication questions, your symptoms worsen and your pain is not controlled Follow-up/Referrals: Low UREÑA [Primary Care Provider] - Diet: Regular Addtl Attending Provider Instructions: * You were hospitalized due to a large kidney stone in your right kidney * Urology performed stent placement in your right ureter. You will need to follow up with the urologist in order to determine treatment for the stone and to eventually have the stent removed. * Pain medications have been prescribed, take as directed. Would recommend using Tylenol as needed for mild to moderate pain and for severe pain will send rx for Tylenol w/ Codeine. Can use Pyridium 100mg TID prn dysuria, but only use for a maximum duration of 2 days. * Use Flomax 0.4mg every day at bedtime. * Follow up with your healthcare provider at the residential. Pending Studies at Discharge: No Stand-Alone Forms: My [facility] Skilled Items Patient informed of condition?: Yes Discharge Level of Care: Other Communicable Disease: No Discharge Prognosis: Improving Lines: None Urinary Catheter: No Medications and DC Order Prescriptions: New tamsulosin [Flomax] 0.4 mg capsule 0.4 mg PO HS Qty: 30 RF: 0 acetaminophen-codeine 300-30 mg tablet 1 tab PO Q6H PRN (Reason: pain (scale score 7-10)) Qty: 18 RF: 0 Continued duloxetine 30 mg Capsule, Delayed Rel Sprinkle 60 mg PO HS RF: 0 Discharge Orders: Discharge Order (Routine); Ordered 12/23/21 Ordered By: Marley Lipscomb/Other Patient Handouts: Understanding Kidney Stones Admission Data Admit Date/Time: 12/21/21 17:42 Attending Provider: Oleg Granger Admit Provider: Sukh Alvarado Primary Care Provider: Low UREÑA Other Providers: Alexander White Other Interventions: Discharge Summary Assessment (RN) Last Done: 12/23/21 09:39 Supervising Physician Co-Signing Physician Notes I personally examined the patient and verified all pringle points of history and exam, discussed case, and agree with decision making with Marilia LOREDO Feeling better overall. Does have some stent related discomfort, but notes it is much better than his kidney stone pain was. Feels up to getting out of the hospital. Vitals noted. Breathing unlabored.Ureterolithiasisstatus post stentingstable for discharge, outpatient follow-up Coding Level of Care Code D/C DAY MANAGEMENT >30 MINS Diagnoses Calculus of right kidney N20.0 Hydronephrosis N13.30 Leukocytosis D72.829 Acute kidney injury N17.9 Chronic hepatitis C B18.2 Chronic depressive disorder F32.9
--- NOTE | 2021-12-22 16:56 | Hospitalist Progress Note ---
Date of Service December 22, 2021 Assessment & Plan (1) Calculus of right kidney: Plan: Known h/o R obstructing renal calculus measuring 1.8cm w/ associated hydronephro sis Admitted to Med/Surg unit Made NPO after MN for planned procedure today Urology consulted for surgical procedure to treat obstructing stone, going to OR today w/ Dr. Ritchie Pain control will be utilized with APAP, IV Toradol for moderate pain, and Morphine for severe pain Hydrated w/ IVF--NSS @ 125 ml/hr, can d/c once diet is advance and he is tolerating oral intake Empiric Rocephin 1g IV administered on 12/21 and 12/22, can d/c as urine is negative for infection (2) Hydronephrosis: Plan: As above (3) Leukocytosis: Plan: Urine does not appear grossly infected however will empirically place on ceftriaxone 1 g IV daily Resolved (4) Acute kidney injury: Plan: IVF hydration as noted above Renal function normalized today w/ hydration (5) Chronic hepatitis C: Plan: No treatment (6) Chronic depressive disorder: Plan: Continue Cymbalta as prescribed Plan: Following urology procedure, he will be monitored in PACU and transitioned back to the floor. Plan for d/c back to [facility] [place] tomorrow as the senior living will not be able to accommodate his return this late in the day. Admission and Anticipated Discharge Date Admission Date: December 21, 2021 Subjective Patient seen on rounds this morning. He reports improvement in his flank pain, had just been medicated with Morphine prior to me seeing him. He is voiding well, denies hematuria, dysuria. Denies fever, chills, cp, dyspnea, n/v. Review of Systems Review of Systems: CONSTITUTIONAL: Denies weight loss/gain, fever and chills, fatigue, malaise, generalized weakness. HEENT: Denies changes in vision and hearing. RESPIRATORY: Denies SOB, cough, wheezing. CV: Denies palpitations, CP, lower extremity edema, orthopnea, PND. GI: Denies abdominal pain, nausea, vomiting and diarrhea. : +right flank pain. Denies dysuria and urinary frequency, urgency, hesitancy. MUSCULOSKELETAL: Denies myalgia and joint pain. SKIN: Denies rash and pruritus. NEUROLOGICAL: Denies headache, syncope, focal weakness, numbness, tingling. PSYCHIATRIC: Denies recent changes in mood. Denies anxiety and depression. Physical Exam Physical Exam: GENERAL: 41 yo well-developed, well-nourished WM. NAD. LUNGS: Clear to auscultation bilaterally. CARDIOVASCULAR: Regular rate and rhythm. No M/G/R. No JVD. ABDOMEN: Soft, non-tender and non-distended. BS normal x 4 quad. : Mild CVA tenderness on right. Negative CVA on L. EXTREMITIES: No edema. Non-tender. Peripheral pulses +2/4. NEUROLOGIC: A&O x3. PSYCHIATRIC: Cooperative. Appropriate mood and affect. SKIN: Warm, dry, intact. No rashes or lesions. Results & Data Results & Data ([facility]) Vital Signs (Past 12 Hours) Vital Signs Temp Pulse Resp BP Pulse Ox 12/22/21 16:43 37.2 C 70 18 120/73 98 12/22/21 14:46 37.2 C 70 18 120/73 98 12/22/21 06:18 36.5 C 50 L 18 107/67 96 Laboratory Results 12/22/21 05:18 12/22/21 05:18 PG Care Time/CCT Total # of Minutes Spent Total Time Spent with Patient: Total time spent is greater than 50% in coordination of care (as documented) at patient's floor/unit and/or counseling patient: Coding Level of Care Code 35896 Subseq Hosp Care Lvl 2 Diagnoses Calculus of right kidney N20.0 Hydronephrosis N13.30 Leukocytosis D72.829 Acute kidney injury N17.9 Chronic hepatitis C B18.2 Chronic depressive disorder F32.9
--- NOTE | 2021-12-22 17:19 | Fluoroscopy Report ---
FL KUB CLINICAL HISTORY: Right-sided stent placement. COMPARISON STUDY: Abdomen and pelvis CT 12/21/2021. FLUOROSCOPY TIME: 3.6 seconds. FINDINGS: A single fluoroscopic spot image of the abdomen demonstrate placement of a right ureteral s tent. Only the proximal portion of the stent is identified and appears in good position. Redemonstrat ion of the 1.8 cm obstructing calculus within the proximal right ureter. IMPRESSION: Fluoroscopic assistance provided for right ureteral stent placement as described above. ACT 112: Negative or not required by law. Electronically signed by: Jeremy Menard M.D. 12/22/2021 5:18 PM
--- NOTE | 2021-12-22 17:23 | Operative Report ---
PG Post Operative Report Pre & Post Diagnosis Operation Date: 12/22/21 09:40 Pre-Op Diagnosis: Calculus of right kidney Post-Op Diagnosis: Calculus of right kidney I identified the patient and participated in the time-out.: Yes Procedure Operation Date: 12/22/21 09:40 Actual Procedures p Cystoscopy, Right Stent Placement(Right) - Asher Ritchie MD Surgeon Steven Ritchie MD Client Support Professional none Estimated Blood Loss 0 Findings Consistent with Post-Op Diagnosis Specimens none Description of Procedure The patient was identified in the preoperative holding area, appropriate informed consents were reviewed and completed and the patient was transferred to the operative suite. Upon arrival, appropriate antibiotics and anesthesia were administered and the patient was placed in dorsal lithotomy position and prepped and draped in sterile fashion. To be in the case I passed a 22 Lithuanian cystoscope with 30 degree lens. Inspection revealed a healthy-appearing urethra and bladder. Age-appropriate prostate. Inspection of the bladder was unremarkable. Ureteral orifices were in orthotopic position. Fluoroscopic evaluation over the presumed area of the right kidney shows a large opacity consistent with his stone seen on preoperative imaging. I turned my attention to the right UO and cannulated with a sensor wire and 5 Lithuanian open-ended catheter. Wire advanced the kidney without difficulty. I was able to bypass the stone without difficulty. I then placed a 6 Lithuanian by 26 Lithuanian double-J ureteral stent seeing a good curl in the kidney as well as the bladder. Good urine drainage around through the catheter was evident. Bladder was decompressed and the case concluded. He was reversed of anesthesia and taken to the recovery room in stable condition. I attest to the content of the Intraoperative Record and any orders documented therein. Any exceptions are noted below.
--- NOTE | 2021-12-22 17:31 | Anesthesiology Progress Note ---
Date of Service December 22, 2021 Anesthesia Post Procedure Vital Signs Vital Signs: Temp Pulse Pulse Resp BP BP Pulse Ox 12/22/21 17:25 78 20 123/68 97 12/22/21 17:15 72 16 132/64 97 12/22/21 17:05 36.5 C 68 14 122/74 98 12/22/21 16:43 37.2 C 70 18 120/73 98 12/22/21 14:46 37.2 C 70 18 120/73 98 12/22/21 06:18 36.5 C 50 L 18 107/67 96 12/21/21 20:25 37.0 C 72 16 132/72 96 12/21/21 19:24 74 18 119/77 96 12/21/21 18:40 15 96 12/21/21 18:30 18 125/74 95 12/21/21 18:20 16 96 12/21/21 18:10 16 96 12/21/21 18:00 21 118/70 96 12/21/21 17:50 21 97 12/21/21 17:40 22 96 12/21/21 17:30 19 120/68 96 Pain Intensity Lower Back: Pain Intensity: 4 Other: Pain Intensity: 8 Transfer of Care Handoff Completed per policy Notes Mental Status: alert / awake / arousable and participated in evaluation Patient Amnestic to Procedure: Yes Nausea / Vomiting: adequately controlled Pain: adequately controlled Airway Patency, RR, SpO2: stable & adequate BP & HR: stable & adequate Hydration State: stable & adequate Anesthetic Complications: no major complications apparent and Pt Satisfied with anesthetic care
[2021-12-22] MEDS ORDERED: cefTRIAXone SODIUM 2,000 MG in DEXTROSE 5% 50 ML IV SCH (18:00)
[2021-12-22] MEDS ORDERED: oxyCODONE/ACETAMINOPHEN 5mg/325mg TAB PO ONE (18:24)
[2021-12-22] MEDS ORDERED: DULoxetine HCL 60 MG CAP PO SCH (21:00)
[2021-12-22] MEDS: oxyCODONE/ACETAMINOPHEN 5mg/325mg TAB PO PRN (22:44)
[2021-12-23] MEDS: KETOROLAC 30 MG/ML VIAL IV PRN (02:11)
[2021-12-23] MEDS: oxyCODONE/ACETAMINOPHEN 5mg/325mg TAB PO PRN ×3 (02:46→14:20)
[2021-12-23] MEDS: SODIUM CHLORIDE 0.9% 1000ML 1,000 ML IV SCH (03:52)
--- NOTE | 2021-12-23 08:42 | Urology Progress Note ---
Date of Service December 23, 2021 Assessment & Plan (1) Ureterolithiasis: (2) Hydronephrosis: Plan: 41yo M admitted with intractable right flank pain secondary to a 1.8cm obstructing proximal right ureteral calculus causing moderate to severe hydronephrosis. - POD #1 s/pCystoscopy, Right Stent Placement - Patient feeling well post procedure, right flank/back pain has improved. - Tolerating the ureteral stent with minimal bother. - Remains afebrile. VSS. - Voiding without issue. - OK for discharge from perspective. - Will arrange outpatient follow-up with our service for definitive stone management. - Recommend discharge with prn pain control and prn Pyridium for stent discomfort. - Expected clinical course reviewed with patient, all questions were answered. - Thank you for allowing us to participate in the acute care of Mr. Mary. Please reconsult us with additional questions, concerns or changes in patient status. Admission and Anticipated Discharge Date Admission Date: December 21, 2021 Subjective Pt examined at bedside this AM. Awake, resting in bed on arrival. Reports his right flank/back pain has improved. Tolerating the ureteral stent with minimal bother. Having some mild right groin and suprapubic discomfort. Voiding without issue. Denies hematuria. Some dysuria. No fevers. No nausea or vomiting. Review of Systems Constitutional: as per Subjective / HPI Gastrointestinal: as per Subjective / HPI Genitourinary: + as per Subjective / HPI Physical Exam Constitutional: well developed and well nourished; no acute distress and not ill appearing Respiratory: normal respiratory effort and able to speak in complete sentences; no labored breathing and no audible wheezes Gastrointestinal (Abdomen): Inspection/Auscultation: abdomen normal to inspection Musculoskeletal: Head/Neck/Chest: normocephalic Skin: No visible rashes or lesions to exposed skin areas Neurologic: moves all extremities and awake Psychiatric: Orientation: alert, oriented x 3 and cooperative Results & Data ([facility]) Vital Signs (Past 12 Hours) Vital Signs Temp Pulse Resp BP Pulse Ox 12/23/21 02:07 36.7 C 63 16 122/77 95 12/22/21 21:08 36.9 C 78 16 126/82 96 PG Care Time/CCT Total # of Minutes Spent Total Time Spent with Patient: Total time spent is greater than 50% in coordination of care (as documented) at patient's floor/unit and/or counseling patient: Coding Level of Care Code 88223 Subseq Hosp Care Lvl 2 Diagnoses Ureterolithiasis N20.1 Hydronephrosis N13.30
== END 2021-12-23 16:41 | DRG 661 ==
LOC: ED 12:32 → SUATTDRO 17:42 → 3E 17:42